=== PATIENT | male | born 1970 | race Caucasian/White ===

== ENCOUNTER → 2017-07-25 14:23 | Outpatient (REF) | payer MEDICAID, SELFPAY ==
[2017-07-25 18:22] LABS: Basophils % 0.5 % (0.1-2.0); Eosinophils # 0.4 K/mm3 (0.0-0.4); Eosinophils % 4.5 % (0.1-12.0); Hematocrit 46.9 % (42.0-52.0); Hemoglobin 14.9 g/dL (14.1-18.0); Lymphocytes # 3.2 K/mm3 (0.7-4.5); Lymphocytes % 38.2 K/mm3 (10-50); Mean Corpuscular HGB Conc 31.8 g/dL (31.8-35.4); Mean Corpuscular Hemoglobin 30.3 pg (27.0-31.2); Mean Corpuscular Volume 95.3 fl (80-94); Mean Platelet Volume 8.8 fl (7.4-10.4); Monocytes # 0.5 K/mm3 (0.1-1.0); Monocytes % 6.3 % (1.7-9.3); Neutrophils # 4.2 K/mm3 (1.8-7.8); Neutrophils % 50.6 % (37.0-80.0); Platelet Count 310 K/mm3 (142-424); Red Blood Count 4.92 M/mm3 (4.60-6.20); White Blood Count 8.3 K/mm3 (4.8-10.8)
[2017-07-25 19:28] LABS: Alanine Aminotransferase 33 U/L (12-78); Albumin Level 4.2 gm/dL (3.4-5.0); Albumin/Globulin Ratio 1.2 (1.1-1.8); Alkaline Phosphatase 111 U/L (46-116); Aspartate Amino Transferase 16 U/L (15-37); Bilirubin,Total 0.8 mg/dL (0.2-1.0); Blood Urea Nitrogen 16 mg/dL (7-18); Calcium 9.6 mg/dL (8.5-10.1); Carbon Dioxide 30 mmol/L (21.0-32.0); Chol/HDL Ratio 4.5 (1-3.5); Cholesterol 186 mg/dL (140-200); Creatinine,Serum 1.22 mg/dL (0.70-1.30); Estimated Glomerular Filt Rate 64 ml/min (>60); Free T4 (Free Thyroxine) 1.49 ng/dl (0.76-1.46); GFR (African American) 77 ML/MIN (>60); Globulin 3.5 gm/dl (1.3-3.2); Glucose 94 mg/dL (74-106); HDL Cholesterol 41 mg/dL (27-67); LDL Cholesterol 113 mg/dL (0-130); Total Protein,Serum 7.7 gm/dL (6.4-8.2); Triglycerides 160 mg/dL (30-200); VLDL Cholesterol 32 mg/dL (0-40)
[2017-07-25 19:59] LABS: Erythrocyte Sedimentation Rate 26 mm/hr (0-15)
[2017-07-25 20:04] LABS: Anion Gap 11.5 mEq/L (5-15); Chloride 102 mmol/L (98-107); Potassium 4.5 mmoL/L (3.5-5.1); Sodium 139 mmol/L (136-145)
== END ==
LOC: LAB 14:23
PROVIDERS: Visit Provider Emergency Medicine
DX: R53.83 Other fatigue (principal); Z79.899 Other long term (current) drug therapy
CPT/HCPCS: 80053; 80061; 84439; 84443; 85025; 85651

== ENCOUNTER → 2017-07-28 13:30 | Outpatient (CLI) | payer MEDICAID, SELFPAY ==
--- NOTE | 2017-07-28 13:34 | XR_ITS ---
XR hip RT 2-3V w/pelvis HISTORY: ITS.REASON: Right Hip Pain ORDERING PHYSICIAN: Tee Hinson MD PATIENT AGE: 46 years COMPARISON: None FINDINGS: There are severe osteoarthritic changes of the right hip with dysplastic changes of the femoral head with mild flattening of the femoral head. There are mild osteoarthritic changes of the left hip. No fracture or dislocation. No lytic or blastic change. IMPRESSION: 1. 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 Mild osteoarthritic changes of the left hip
== END ==
PROVIDERS: PCP Emergency Medicine; Visit Provider Emergency Medicine
DX: M25.551 Pain in right hip (principal)
CPT/HCPCS: 73502

== ENCOUNTER → 2017-08-04 14:11 | Outpatient (REF) | payer MEDICAID, SELFPAY ==
[2017-08-04 15:05] LABS: Amphetamine/Metha Screen,Urine Negative ng/mL (<1000); Barbiturates Screen,Urine Negative ng/mL (<200); Benzodiazepines Screen,Urine Negative ng/mL (200); Cannabinoid Screen,Urine Negative ng/mL (<50); Cocaine Screen,Urine Negative ng/g (<300); Methadone Screen,Urine Negative ng/mL (<300); Opiate Screen,Urine Positive ng/mL (<300); Phencyclidine Screen,Urine Negative ng/mL (<25)
== END ==
LOC: LAB 14:11
PROVIDERS: Visit Provider Emergency Medicine
DX: Z79.899 Other long term (current) drug therapy (principal)
CPT/HCPCS: 80305

== ENCOUNTER → 2017-08-27 09:46 | Outpatient (REF) | payer MEDICAID, SELFPAY ==
[2017-08-27 14:06] LABS: Amphetamine/Metha Screen,Urine Negative ng/mL (<1000); Barbiturates Screen,Urine Negative ng/mL (<200); Benzodiazepines Screen,Urine Negative ng/mL (200); Cannabinoid Screen,Urine Negative ng/mL (<50); Cocaine Screen,Urine Negative ng/g (<300); Methadone Screen,Urine Negative ng/mL (<300); Opiate Screen,Urine Positive ng/mL (<300); Phencyclidine Screen,Urine Negative ng/mL (<25)
== END ==
LOC: LAB 09:46
PROVIDERS: Visit Provider Emergency Medicine
DX: Z79.899 Other long term (current) drug therapy (principal)
CPT/HCPCS: 80305

== ENCOUNTER → 2017-09-26 09:04 | Outpatient (REF) | payer MEDICAID, SELFPAY ==
[2017-09-26 19:08] LABS: Amphetamine/Metha Screen,Urine Negative ng/mL (<1000); Barbiturates Screen,Urine Negative ng/mL (<200); Benzodiazepines Screen,Urine Negative ng/mL (200); Cannabinoid Screen,Urine Negative ng/mL (<50); Cocaine Screen,Urine Negative ng/g (<300); Methadone Screen,Urine Negative ng/mL (<300); Opiate Screen,Urine Positive ng/mL (<300); Phencyclidine Screen,Urine Negative ng/mL (<25)
== END ==
LOC: LAB 09:04
PROVIDERS: Visit Provider Emergency Medicine
DX: Z79.899 Other long term (current) drug therapy (principal)
CPT/HCPCS: 80305

== ENCOUNTER → 2017-10-24 10:14 | Outpatient (REF) | payer MEDICAID, SELFPAY ==
[2017-10-24 14:16] LABS: Amphetamine/Metha Screen,Urine Negative ng/mL (<1000); Barbiturates Screen,Urine Negative ng/mL (<200); Benzodiazepines Screen,Urine Negative ng/mL (200); Cannabinoid Screen,Urine Negative ng/mL (<50); Cocaine Screen,Urine Negative ng/g (<300); Methadone Screen,Urine Negative ng/mL (<300); Opiate Screen,Urine Positive ng/mL (<300); Phencyclidine Screen,Urine Negative ng/mL (<25)
== END ==
LOC: LAB 10:14
PROVIDERS: Visit Provider Emergency Medicine
DX: Z79.899 Other long term (current) drug therapy (principal)
CPT/HCPCS: 80305

== ENCOUNTER → 2017-10-27 10:06 | Outpatient (CLI) | payer MEDICAID, SELFPAY ==
[2017-10-31 17:24] LABS: Nicotine 16.8 ng/mL (.)
[2017-10-31 17:25] LABS: Cotinine 582.7 ng/mL (.)
== END ==
PROVIDERS: Visit Provider Orthopaedic Surgery Adult Reconstructive Orthopaedic Surgery
DX: Z00.00 Encounter for general adult medical examination without abnormal findings (principal)
CPT/HCPCS: 36415; 80323; G0480

== ENCOUNTER → 2017-11-19 10:12 | Outpatient (REF) | payer MEDICAID, SELFPAY ==
[2017-11-19 14:07] LABS: Amphetamine/Metha Screen,Urine Negative ng/mL (<1000); Barbiturates Screen,Urine Negative ng/mL (<200); Benzodiazepines Screen,Urine Negative ng/mL (200); Cannabinoid Screen,Urine Negative ng/mL (<50); Cocaine Screen,Urine Negative ng/g (<300); Methadone Screen,Urine Negative ng/mL (<300); Opiate Screen,Urine Positive ng/mL (<300); Phencyclidine Screen,Urine Negative ng/mL (<25)
== END ==
LOC: LAB 10:12
PROVIDERS: Visit Provider Emergency Medicine
DX: Z79.899 Other long term (current) drug therapy (principal)
CPT/HCPCS: 80305

== ENCOUNTER → 2017-11-25 10:36 | Outpatient (CLI) | payer MEDICAID, SELFPAY ==
[2017-11-25 10:48] LABS: Microscopic, Urine URINE MICROSCOPIC (MICROSCOPIC)
[2017-11-25 11:26] LABS: Appearance,Urine CLEAR (Clear); Bilirubin,Urine Negative (Negative); Blood, Urine Negative (Negative); Color,Urine YELLOW (Yellow); Glucose,Urine (UA) Negative (Negative); Ketones,Urine Negative (Negative); Leukocyte Esterase,Urine Negative (Negative); Nitrate,Urine Negative (Negative); Protein,Urine Negative (Negative); Specific Gravity, Urine 1.015 (1.005-1.030); Urobilinogen,Urine 0.2 EU/dl (0.2)
[2017-11-25 11:30] LABS: Activated Partial Thrombo Time 27.2 seconds (23.6-34.0); Prothrombin Time 9.7 seconds (9.4-11.8)
[2017-11-25 11:34] LABS: Basophils # 0.1 K/mm3 (0-0.2); Basophils % 0.6 % (0.1-2.0); Eosinophils # 0.5 K/mm3 (0.0-0.4); Hematocrit 46.1 % (42.0-52.0); Hemoglobin 14.6 g/dL (14.1-18.0); Lymphocytes # 2.9 K/mm3 (0.7-4.5); Lymphocytes % 31.3 K/mm3 (10-50); Mean Corpuscular HGB Conc 31.7 g/dL (31.8-35.4); Mean Corpuscular Hemoglobin 30.4 pg (27.0-31.2); Mean Corpuscular Volume 95.7 fl (80-94); Mean Platelet Volume 7.7 fl (7.4-10.4); Monocytes # 0.7 K/mm3 (0.1-1.0); Monocytes % 7.7 % (1.7-9.3); Neutrophils # 5.1 K/mm3 (1.8-7.8); Neutrophils % 55.4 % (37.0-80.0); Platelet Count 343 K/mm3 (142-424); Red Blood Count 4.82 M/mm3 (4.60-6.20); Red Cell Distribution Width 11.9 % (11.5-17.5); White Blood Count 9.2 K/mm3 (4.8-10.8)
[2017-11-25 11:37] LABS: Bacteria,Urine Trace /lpf; Squamous Epithelial Cell,Urine Occasional #/hpf (0-5)
[2017-11-25 11:55] LABS: Albumin Level 4.1 gm/dL (3.4-5.0); Anion Gap 13.8 mEq/L (5-15); Blood Urea Nitrogen 19 mg/dL (7-18); Calcium 10.1 mg/dL (8.5-10.1); Carbon Dioxide 28 mmol/L (21.0-32.0); Chloride 100 mmol/L (98-107); Creatinine,Serum 1.24 mg/dL (0.70-1.30); Estimated Glomerular Filt Rate 62 ml/min (>60); GFR (African American) 76 ML/MIN (>60); Glucose 90 mg/dL (74-106); Potassium 4.8 mmoL/L (3.5-5.1); Sodium 137 mmol/L (136-145)
[2017-11-25 12:28] LABS: Hemoglobin A1C 5.4 % (0.0-7.0)
[2017-11-27 06:28] LABS: Vitamin D 25 Hydroxy 29.1 ng/mL (30.0-100.0)
== END ==
PROVIDERS: Visit Provider Orthopaedic Surgery Adult Reconstructive Orthopaedic Surgery
DX: M16.10 Unilateral primary osteoarthritis, unspecified hip (principal)
CPT/HCPCS: 36415; 80048; 80323; 81001; 82040; 82652; 83036; 85025; 85610; 85730; G0480

== ENCOUNTER → 2018-01-14 09:08 | Outpatient (REF) | payer MEDICAID, SELFPAY ==
[2018-01-14 14:05] LABS: Amphetamine/Metha Screen,Urine Negative ng/mL (<1000); Barbiturates Screen,Urine Negative ng/mL (<200); Benzodiazepines Screen,Urine Negative ng/mL (<200); Cannabinoid Screen,Urine Negative ng/mL (<50); Cocaine Screen,Urine Negative ng/mL (<300); Methadone Screen,Urine Negative ng/mL (<300); Opiate Screen,Urine Positive ng/mL (<300); Phencyclidine Screen,Urine Negative ng/mL (<25)
== END ==
LOC: LAB 09:08
PROVIDERS: Visit Provider Emergency Medicine
DX: M25.552 Pain in left hip (principal)
CPT/HCPCS: 80305

== ENCOUNTER 2018-01-27 15:30 | Outpatient (RCR) | payer MEDICAID, SELFPAY | END 2018-01-27 15:31 | disposition home or self-care (01) | LOC: PT 15:30 | PROVIDERS: PCP Emergency Medicine; Visit Provider Orthopaedic Surgery Adult Reconstructive Orthopaedic Surgery | DX: M25.552 Pain in left hip (principal); Z96.642 Presence of left artificial hip joint | CPT/HCPCS: 97110; 97163 ==

== ENCOUNTER → 2018-01-31 11:16 | Outpatient (CLI) | payer MEDICAID, SELFPAY ==
[2018-01-31 11:24] LABS: Microscopic, Urine URINE MICROSCOPIC (MICROSCOPIC)
[2018-01-31 11:50] LABS: Appearance,Urine CLEAR (Clear); Bilirubin,Urine Negative (Negative); Blood, Urine Negative (Negative); Color,Urine YELLOW (Yellow); Glucose,Urine (UA) Negative (Negative); Ketones,Urine Negative (Negative); Leukocyte Esterase,Urine Negative (Negative); Nitrate,Urine Negative (Negative); PH,Urine 6.5 (5.0-8.5); Protein,Urine Negative (Negative); Specific Gravity, Urine 1.015 (1.005-1.030)
[2018-01-31 11:51] LABS: Basophils % 0.3 % (0.1-2.0); Eosinophils # 0.6 K/mm3 (0.0-0.4); Eosinophils % 6.6 % (0.1-12.0); Hematocrit 45.4 % (42.0-52.0); Hemoglobin 14.9 g/dL (14.1-18.0); Lymphocytes # 2.6 K/mm3 (0.7-4.5); Lymphocytes % 28.5 K/mm3 (10-50); Mean Corpuscular HGB Conc 32.9 g/dL (31.8-35.4); Mean Corpuscular Hemoglobin 30.6 pg (27.0-31.2); Mean Corpuscular Volume 93.2 fl (80-94); Mean Platelet Volume 7.3 fl (7.4-10.4); Monocytes # 0.6 K/mm3 (0.1-1.0); Neutrophils # 5.3 K/mm3 (1.8-7.8); Neutrophils % 57.6 % (37.0-80.0); Platelet Count 350 K/mm3 (142-424); Red Blood Count 4.87 M/mm3 (4.60-6.20); Red Cell Distribution Width 13.3 % (11.5-17.5); White Blood Count 9.2 K/mm3 (4.8-10.8)
[2018-01-31 12:00] LABS: Activated Partial Thrombo Time 29.9 seconds (23.6-34.0); INR 0.92 (0.9-1.1); Prothrombin Time 9.5 seconds (9.4-11.8)
[2018-01-31 12:20] LABS: Hemoglobin A1C 5.2 % (0.0-7.0)
[2018-01-31 12:29] LABS: Bacteria,Urine Trace /lpf; Squamous Epithelial Cell,Urine Occasional #/hpf (0-5)
[2018-01-31 12:51] LABS: Anion Gap 14.7 mEq/L (5-15); Blood Urea Nitrogen 18 mg/dL (7-18); Calcium 9.8 mg/dL (8.5-10.1); Carbon Dioxide 29 mmol/L (21.0-32.0); Chloride 101 mmol/L (98-107); Creatinine,Serum 1.47 mg/dL (0.70-1.30); Estimated Glomerular Filt Rate 51 ml/min (>60); GFR (African American) 62 ML/MIN (>60); Glucose 92 mg/dL (74-106); Potassium 4.7 mmoL/L (3.5-5.1); Sodium 140 mmol/L (136-145)
[2018-02-03 16:04] LABS: Vitamin D 25 Hydroxy 29.4 ng/mL (30.0-100.0)
== END ==
PROVIDERS: Visit Provider Orthopaedic Surgery Adult Reconstructive Orthopaedic Surgery
DX: M16.10 Unilateral primary osteoarthritis, unspecified hip (principal)
CPT/HCPCS: 36415; 80048; 80323; 81001; 82040; 82652; 83036; 85025; 85610; 85730

== ENCOUNTER → 2018-03-17 14:40 | Outpatient (REF) | payer MEDICAID, SELFPAY ==
[2018-03-17 19:16] LABS: Amphetamine/Metha Screen,Urine Negative ng/mL (<1000); Barbiturates Screen,Urine Negative ng/mL (<200); Benzodiazepines Screen,Urine Negative ng/mL (<200); Cannabinoid Screen,Urine Negative ng/mL (<50); Cocaine Screen,Urine Negative ng/mL (<300); Methadone Screen,Urine Negative ng/mL (<300); Opiate Screen,Urine Positive ng/mL (<300); Phencyclidine Screen,Urine Negative ng/mL (<25)
== END ==
LOC: LAB 14:40
PROVIDERS: Visit Provider Emergency Medicine
DX: Z79.899 Other long term (current) drug therapy (principal)
CPT/HCPCS: 80305

== ENCOUNTER 2018-03-30 15:00 | Outpatient (RCR) | payer MEDICAID, SELFPAY | END 2018-03-30 15:01 | disposition home or self-care (01) | LOC: PT 15:00 | PROVIDERS: PCP Emergency Medicine; Visit Provider Orthopaedic Surgery Adult Reconstructive Orthopaedic Surgery | DX: Z96.641 Presence of right artificial hip joint (principal) | CPT/HCPCS: 97110; 97163 ==

== ENCOUNTER → 2018-04-21 17:50 | Outpatient (CLI) | payer MEDICAID, SELFPAY ==
[2018-04-21 19:00] LABS: Amphetamine/Metha Screen,Urine Negative ng/mL (<1000); Barbiturates Screen,Urine Negative ng/mL (<200); Benzodiazepines Screen,Urine Negative ng/mL (<200); Cannabinoid Screen,Urine Negative ng/mL (<50); Cocaine Screen,Urine Negative ng/mL (<300); Methadone Screen,Urine Negative ng/mL (<300); Opiate Screen,Urine Positive ng/mL (<300); Phencyclidine Screen,Urine Negative ng/mL (<25)
== END ==
PROVIDERS: Visit Provider Emergency Medicine
DX: Z79.899 Other long term (current) drug therapy (principal)
CPT/HCPCS: 80305

== ENCOUNTER → 2018-04-30 13:08 | Outpatient (CLI) | payer MEDICAID, SELFPAY ==
--- NOTE | 2018-04-30 13:10 | MR_ITS ---
MR lumbar spine wo con, MR 3-d myelogram/MRCP HISTORY: Low back pain LBP since last Hip replacement surgery in JAN. No trauma ITS.REASON: back pain ORDERING PHYSICIAN: Tee Hinson MD PATIENT AGE: 47 years Comparison: None TECHNIQUE: Standard multiplanar multiecho sequences are performed without contrast. 3-D MIP and myelographic images are also rendered and reviewed FINDINGS: There is normal alignment. The spinal cord ends at the T12-L1 level. T 11-12: Mild degenerative disc disease. L1-L2: Unremarkable. L2-L3: Unremarkable. L3-4: Degenerative disc disease with mild bulging disc along with facet and ligamentum flavum hypertrophy. There is mild left-sided foraminal narrowing. A small area of increased T2 signal is present in the right aspect of the vertebral body posteriorly at 7 mm. This is nonspecific and may be due to small hemangioma isointense on T1. L4-L5: Mild degenerative disc disease with bulging disc along with facet and ligamentum flavum hypertrophy. There is moderate to severe left-sided foraminal narrowing with left-sided foraminal and lateral disc protrusion/disc osteophyte complex contributing to the foraminal narrowing. L5-S1: Minimal anterolisthesis of L5 of 2 mm with bulging disc and facet and ligamentum hypertrophy with moderate to severe left-sided foraminal narrowing. No extruded herniated disc evident. IMPRESSION: 1. Multilevel lumbar spondylosis as detailed above with degenerative disc disease, bulging disc and facet and ligamentum hypertrophy with lateral recess and foraminal narrowing. Please see above for detailed description at each level 2. L4-L5: Mild degenerative disc disease with bulging disc along with facet and ligamentum flavum hypertrophy. There is moderate to severe left-sided foraminal narrowing with left-sided foraminal and lateral disc protrusion/disc osteophyte complex contributing to the foraminal narrowing. 3. L5-S1: Minimal anterolisthesis of L5 of 2 mm with bulging disc and facet and ligamentum hypertrophy with moderate to severe left-sided foraminal narrowing.
== END ==
PROVIDERS: PCP Emergency Medicine; Visit Provider Emergency Medicine
DX: M54.9 Dorsalgia, unspecified (principal); M25.551 Pain in right hip; M25.552 Pain in left hip
CPT/HCPCS: 72148; 76376

== ENCOUNTER → 2018-05-20 19:40 | Outpatient (CLI) | payer MEDICAID, SELFPAY ==
[2018-05-20 21:58] LABS: Amphetamine/Metha Screen,Urine Negative ng/mL (<1000); Barbiturates Screen,Urine Negative ng/mL (<200); Benzodiazepines Screen,Urine Negative ng/mL (<200); Cannabinoid Screen,Urine Negative ng/mL (<50); Cocaine Screen,Urine Negative ng/mL (<300); Methadone Screen,Urine Negative ng/mL (<300); Opiate Screen,Urine Positive ng/mL (<300); Phencyclidine Screen,Urine Negative ng/mL (<25)
== END ==
PROVIDERS: Visit Provider Emergency Medicine
DX: Z79.899 Other long term (current) drug therapy (principal)
CPT/HCPCS: 80305

== ENCOUNTER → 2018-05-25 13:19 | Outpatient (POV) | payer MEDICAID, SELFPAY ==
[2018-05-25 13:26] VITALS: BP 119/87; PULSE 100; RESP 18; O2SAT 98
--- NOTE | 2018-05-25 15:53 | HMH.PMCON ---
Assessment and Plan (1) Sacroiliitis Current visit: Yes Status: Acute Category: Medical Code(s): M46.1 - Sacroiliitis, not elsewhere classified (2) DDD (degenerative disc disease), lumbar Current visit: No Status: Chronic Category: Medical Code(s): M51.36 - Other intervertebral disc degeneration, lumbar region - Assessment and plan all Dx Assessment and Plan for all problems:: I offered the patient injections he is uninterested in these. I did give the patient information on an SI joint injection I do believe he could benefit from bilateral SI joint injections. Patient is going to review this. If he is interested in moving forward with this he is going to call our office. This note was dictated using voice recognition software and may contain errors or omissions HPI - Data of Consult Consult date: 05/25/18 Requesting Physician: María Reese APRN Primary Care Provider: Tee Hinson MD - Consult Narrative Reason for consult: Low back pain History of present illness: Mr. Boyle is a 47 year old male who presents today for consultation in regards to his low back pain and bilateral hip pain. Patient had bile hip replacement in November. Patient states sitting or standing long periods of time increases his pain while gabapentin and rest decreases his pain. He does have numbness and tingling in his bilateral legs. He is tried physical therapy with minimal relief. Patient rates his pain a 4 out of 10 today. Patient and I discussed potential SI joint issues and injections. Patient is uninterested in injective. Patient states that after an injection in his bursa he had to have a hip replacement and that after 1 of the people he knows had an injection in her back she had about have back surgery. I explained to him the difference in SI joint injections.. CC: María Reese APRN [facility] History I have reviewed the patient's past medical history: Yes Medical History: Reports:: Hyperlipidemia Other Medical History: Reports: Other Laterality Cases: Bilateral: Total Hip Replacement Other Surgeries: Yes: Hernia Repair Amputation: No Fractures: No - *Social History Smoking Status: Unknown if ever smoked Alcohol Intake: never Substance Use Type: denies use Occupational Status: disabled Housing: house Household Members: family - Psychiatric History Expresses thoughts of harming self/others: None Suicide Plan Description: No Plan *Family Hx:: Cancer, Heart Attack Review of Systems - Review of Systems ROS General: no recent weight change, no fever, no sleep disturbances Respiratory: no cough, no shortness of air, no recurring pulmonary infections Cardiovascular/Peripheral Vascular: No chest pain, No palpitations, no edema, no shortness of breath. Gastrointestinal: no incontinence, normal bowel movements reported Genitourinary: no incontinence Musculoskeletal: Bilateral hip pain, back pain Psychiatric: normal mood/ affect Neurological: [denies weakness in extremities], [denies balance issues] Meds Allergies Allergy/AdvReac Type Severity Reaction Status Date / Time No Known Drug Allergies Allergy Verified 05/20/18 13:25 Objective Vital signs: Pulse Resp BP Pulse Ox 100 H 18 119/87 98 05/25/18 13:26 05/25/18 13:26 05/25/18 13:26 05/25/18 13:26 Narrative: Physical Exam General: Alert and oriented x3, no acute distress, pleasant and cooperative, [on room air] Lungs: Resps E/U, Symmetrical chest expansion, Eyes: PERRL Musculoskeletal: Flexion and extension of lumbar spine somewhat guarded secondary to pain, deep tendon reflexes normal, strength in upper and lower extremities [5/5], [abnormal gait noted] positive Terri's test bilaterally Neurological: speech clear, 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
--- NOTE | 2018-05-25 15:56 | P.CONS_ITS ---
Assessment and Plan (1) Sacroiliitis Current visit: Yes Status: Acute Category: Medical Code(s): M46.1 - Sacroiliitis, not elsewhere classified (2) DDD (degenerative disc disease), lumbar Current visit: No Status: Chronic Category: Medical Code(s): M51.36 - Other intervertebral disc degeneration, lumbar region - Assessment and plan all Dx Assessment and Plan for all problems:: I offered the patient injections he is uninterested in these. I did give the patient information on an SI joint injection I do believe he could benefit from bilateral SI joint injections. Patient is going to review this. If he is interested in moving forward with this he is going to call our office. This note was dictated using voice recognition software and may contain errors or omissions HPI - Data of Consult Consult date: 05/25/18 Requesting Physician: María Reese APRN Primary Care Provider: Tee Hinson MD - Consult Narrative Reason for consult: Low back pain History of present illness: Mr. Boyle is a 47 year old male who presents today for consultation in regards to his low back pain and bilateral hip pain. Patient had bile hip replacement in November. Patient states sitting or standing long periods of time increases his pain while gabapentin and rest decreases his pain. He does have numbness and tingling in his bilateral legs. He is tried physical therapy with minimal relief. Patient rates his pain a 4 out of 10 today. Patient and I discussed potential SI joint issues and injections. Patient is uninterested in injective. Patient states that after an injection in his bursa he had to have a hip replacement and that after 1 of the people he knows had an injection in her back she had about have back surgery. I explained to him the difference in SI joint injections.. CC: María Reese APRN [facility] History I have reviewed the patient's past medical history: Yes Medical History: Reports:: Hyperlipidemia Other Medical History: Reports: Other Laterality Cases: Bilateral: Total Hip Replacement Other Surgeries: Yes: Hernia Repair Amputation: No Fractures: No - *Social History Smoking Status: Unknown if ever smoked Alcohol Intake: never Substance Use Type: denies use Occupational Status: disabled Housing: house Household Members: family - Psychiatric History Expresses thoughts of harming self/others: None Suicide Plan Description: No Plan *Family Hx:: Cancer, Heart Attack Review of Systems - Review of Systems ROS General: no recent weight change, no fever, no sleep disturbances Respiratory: no cough, no shortness of air, no recurring pulmonary infections Cardiovascular/Peripheral Vascular: No chest pain, No palpitations, no edema, no shortness of breath. Gastrointestinal: no incontinence, normal bowel movements reported Genitourinary: no incontinence Musculoskeletal: Bilateral hip pain, back pain Psychiatric: normal mood/ affect Neurological: [denies weakness in extremities], [denies balance issues] Meds Allergies Allergy/AdvReac Type Severity Reaction Status Date / Time No Known Drug Allergies Allergy Verified 05/20/18 13:25 Objective Vital signs: Pulse Resp BP Pulse Ox 100 H 18 119/87 98 05/25/18 13:26 05/25/18 13:26 05/25/18 13:26 05/25/18 13:26 Narrative: Physical Exam Ge
== END ==
PROVIDERS: PCP Emergency Medicine; Visit Provider Clinical Nurse Specialist Family Health
DX: M46.1 Sacroiliitis, not elsewhere classified (principal); M51.36 Other intervertebral disc degeneration, lumbar region
CPT/HCPCS: 99202

== ENCOUNTER → 2018-06-11 14:27 | Outpatient (POV) | payer MEDICAID, SELFPAY | PROVIDERS: Visit Provider Neurological Surgery | DX: Z00.00 Encounter for general adult medical examination without abnormal findings (principal) ==

== ENCOUNTER → 2018-06-17 15:46 | Outpatient (CLI) | payer MEDICAID, SELFPAY ==
[2018-06-17 16:29] LABS: Amphetamine/Metha Screen,Urine Negative ng/mL (<1000); Barbiturates Screen,Urine Negative ng/mL (<200); Benzodiazepines Screen,Urine Negative ng/mL (<200); Cannabinoid Screen,Urine Negative ng/mL (<50); Cocaine Screen,Urine Negative ng/mL (<300); Methadone Screen,Urine Negative ng/mL (<300); Opiate Screen,Urine Positive ng/mL (<300); Phencyclidine Screen,Urine Negative ng/mL (<25)
== END ==
PROVIDERS: Visit Provider Emergency Medicine
DX: M54.9 Dorsalgia, unspecified (principal)
CPT/HCPCS: 80305

== ENCOUNTER → 2018-07-07 11:27 | Outpatient (POV) | payer MEDICAID, SELFPAY ==
[2018-07-07 12:15] VITALS: BP 122/82; PULSE 73; RESP 18; O2SAT 98; BMI 30.5
--- NOTE | 2018-07-07 12:28 | HMH.PAINSOAP ---
[facility] Pain Management SOAP Note Subjective:: Is a pleasant 47-year-old white male who presents today for follow-up. He was consulted and it was believed he could benefit from bilateral SI joint injections however he was uninterested in the time. Patient has seen Dr. Sorenson since then who reiterated he felt that the SI joint injections would be beneficial. Patient would like to proceed with this now. He rates his pain a 6 out of 10 in his lower back. ROS General: no recent weight change, no fever, no sleep disturbances Respiratory: no cough, no shortness of air, no recurring pulmonary infections Cardiovascular/Peripheral Vascular: No chest pain, No palpitations, no edema, no shortness of breath. Gastrointestinal: no incontinence, normal bowel movements reported Genitourinary: no incontinence Musculoskeletal: Back pain, SI joint pain Psychiatric: normal mood/ affect Neurological: [denies weakness in extremities], [denies balance issues] Objective:: Physical Exam General: Alert and oriented x3, no acute distress, pleasant and cooperative, [on room air] Lungs: Resps E/U, Symmetrical chest expansion, Eyes: PERRL Musculoskeletal: Flexion and extension of lumbar spine somewhat guarded secondary to pain, deep tendon reflexes normal, strength in upper and lower extremities [5/5], [abnormal gait noted] positive Terri's test bilaterally Neurological: speech clear, director of placement equal, no gross sensory deficits Assessment:: Sacroiliitis Plan:: We will schedule bilateral SI joint injections for the patient. I will follow-up with him after this. Patient is not on any anticoagulation therapy and is continuing a home stretching program. Dr. Mcdonald has reviewed this note and agrees with this plan of care. This note was dictated using voice recognition software and may contain errors or omissions
--- NOTE | 2018-07-07 12:31 | P.CONS_ITS ---
[facility] Pain Management SOAP Note Subjective:: Is a pleasant 47-year-old white male who presents today for follow-up. He was consulted and it was believed he could benefit from bilateral SI joint injections however he was uninterested in the time. Patient has seen Dr. Sorenson since then who reiterated he felt that the SI joint injections would be beneficial. Patient would like to proceed with this now. He rates his pain a 6 out of 10 in his lower back. ROS General: no recent weight change, no fever, no sleep disturbances Respiratory: no cough, no shortness of air, no recurring pulmonary infections Cardiovascular/Peripheral Vascular: No chest pain, No palpitations, no edema, no shortness of breath. Gastrointestinal: no incontinence, normal bowel movements reported Genitourinary: no incontinence Musculoskeletal: Back pain, SI joint pain Psychiatric: normal mood/ affect Neurological: [denies weakness in extremities], [denies balance issues] Objective:: Physical Exam General: Alert and oriented x3, no acute distress, pleasant and cooperative, [on room air] Lungs: Resps E/U, Symmetrical chest expansion, Eyes: PERRL Musculoskeletal: Flexion and extension of lumbar spine somewhat guarded secondary to pain, deep tendon reflexes normal, strength in upper and lower extremities [5/5], [abnormal gait noted] positive Terri's test bilaterally Neurological: speech clear, operater equal, no gross sensory deficits Assessment:: Sacroiliitis Plan:: We will schedule bilateral SI joint injections for the patient. I will follow- up with him after this. Patient is not on any anticoagulation therapy and is continuing a home stretching program. Dr. Mcdonald has reviewed this note and agrees with this plan of care. This note was dictated using voice recognition software and may contain errors or omissions
== END ==
PROVIDERS: PCP Emergency Medicine; Visit Provider Clinical Nurse Specialist Family Health
DX: M46.1 Sacroiliitis, not elsewhere classified (principal)
CPT/HCPCS: 99213

== ENCOUNTER → 2018-08-11 10:28 | Outpatient (POV) | payer MEDICAID, SELFPAY ==
[2018-08-11 10:37] VITALS: BP 134/98; PULSE 69; RESP 18; O2SAT 98; BMI 30.5
--- NOTE | 2018-08-11 11:10 | HMH.PAINSOAP ---
[facility] Pain Management SOAP Note Subjective:: patient is a pleasant 47-year-old white male presents today to follow-up after bilateral SI joint injections. Patient was seen by Dr. Sorenson who recommended SI joint injections. Patient stated that there were not beneficial at all. He rates his pain a 7 out of 10. Patient MRI does show lumbar spondylosis along with mild degenerative disc disease. Patient and I did discuss facet joint injections however he is unsure if he would like to move forward with any more injective therapy. ROS General: no recent weight change, no fever, no sleep disturbances Respiratory: no cough, no shortness of air, no recurring pulmonary infections Cardiovascular/Peripheral Vascular: No chest pain, No palpitations, no edema, no shortness of breath. Gastrointestinal: no incontinence, normal bowel movements reported Genitourinary: no incontinence Musculoskeletal: Back pain, hip pain Psychiatric: normal mood/ affect Neurological: [denies weakness in extremities], [denies balance issues] Objective:: Physical Exam General: Alert and oriented x3, no acute distress, pleasant and cooperative, [on room air] Lungs: Resps E/U, Symmetrical chest expansion, Eyes: PERRL Musculoskeletal: Flexion and extension of lumbar spine somewhat guarded secondary to pain, deep tendon reflexes normal, strength in upper and lower extremities [5/5], antalgic gait noted, positive Kemps test bilateral lumbar spine Neurological: speech clear, road conductor equal, no gross sensory deficits Assessment:: Lumbar spondylosis, sacroiliitis, back pain, degenerative disc disease lumbar spine Plan:: Patient is good to review some information in regards to facet joint injections. I discussed with him that these are diagnostic to determine if he would be a rhizotomy candidate. Patient is going to call us if he is interested in moving forward with this. Dr. Mcdonald has reviewed this note and agrees with this plan of care. This note was dictated using voice recognition software and may contain errors or omissions
--- NOTE | 2018-08-11 11:13 | P.CONS_ITS ---
[facility] Pain Management SOAP Note Subjective:: patient is a pleasant 47-year-old white male presents today to follow-up after bilateral SI joint injections. Patient was seen by Dr. Sorenson who recommended SI joint injections. Patient stated that there were not beneficial at all. He rates his pain a 7 out of 10. Patient MRI does show lumbar spondylosis along with mild degenerative disc disease. Patient and I did discuss facet joint injections however he is unsure if he would like to move forward with any more injective therapy. ROS General: no recent weight change, no fever, no sleep disturbances Respiratory: no cough, no shortness of air, no recurring pulmonary infections Cardiovascular/Peripheral Vascular: No chest pain, No palpitations, no edema, no shortness of breath. Gastrointestinal: no incontinence, normal bowel movements reported Genitourinary: no incontinence Musculoskeletal: Back pain, hip pain Psychiatric: normal mood/ affect Neurological: [denies weakness in extremities], [denies balance issues] Objective:: Physical Exam General: Alert and oriented x3, no acute distress, pleasant and cooperative, [on room air] Lungs: Resps E/U, Symmetrical chest expansion, Eyes: PERRL Musculoskeletal: Flexion and extension of lumbar spine somewhat guarded secondary to pain, deep tendon reflexes normal, strength in upper and lower extremities [5/5], antalgic gait noted, positive Kemps test bilateral lumbar spine Neurological: speech clear, 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 I discussed with him that these are diagnostic to determine if he would be a rhizotomy candidate. Patient is going to call us if he is interested in moving forward with this. Dr. Mcdonald has reviewed this note and agrees with this plan of care. This note was dictated using voice recognition software and may contain errors or omissions
== END ==
PROVIDERS: PCP Emergency Medicine; Visit Provider Clinical Nurse Specialist Family Health
DX: M47.816 Spondylosis without myelopathy or radiculopathy, lumbar region (principal); M46.1 Sacroiliitis, not elsewhere classified; M51.36 Other intervertebral disc degeneration, lumbar region
CPT/HCPCS: 99213

== ENCOUNTER → 2018-08-17 15:20 | Outpatient (CLI) | payer MEDICAID, SELFPAY ==
[2018-08-17 15:53] LABS: Amphetamine/Metha Screen,Urine Negative ng/mL (<1000); Barbiturates Screen,Urine Negative ng/mL (<200); Benzodiazepines Screen,Urine Negative ng/mL (<200); Cannabinoid Screen,Urine Negative ng/mL (<50); Cocaine Screen,Urine Negative ng/mL (<300); Methadone Screen,Urine Negative ng/mL (<300); Opiate Screen,Urine Positive ng/mL (<300); Phencyclidine Screen,Urine Negative ng/mL (<25)
== END ==
PROVIDERS: Visit Provider Nurse Practitioner Family
DX: Z79.899 Other long term (current) drug therapy (principal)
CPT/HCPCS: 80305

== ENCOUNTER → 2018-09-15 18:04 | Outpatient (CLI) | payer MEDICAID, SELFPAY ==
[2018-09-15 19:28] LABS: Amphetamine/Metha Screen,Urine Negative ng/mL (<1000); Barbiturates Screen,Urine Negative ng/mL (<200); Benzodiazepines Screen,Urine Negative ng/mL (<200); Cannabinoid Screen,Urine Negative ng/mL (<50); Cocaine Screen,Urine Negative ng/mL (<300); Methadone Screen,Urine Negative ng/mL (<300); Opiate Screen,Urine Positive ng/mL (<300); Phencyclidine Screen,Urine Negative ng/mL (<25)
[2018-09-23 04:26] LABS: Codeine Negative (Cutoff=100); Hydrocodone Positive (.); Hydromorphone Positive (.); Morphine Negative (Cutoff=100)
[2018-09-23 08:24] LABS: Hydrocodone Confirm 438 ng/mL (Cutoff=100); Hydromorphone Confirm 269 ng/mL (Cutoff=100); Opiates Positive (.)
== END ==
PROVIDERS: Visit Provider Nurse Practitioner Family
DX: Z79.899 Other long term (current) drug therapy (principal)
CPT/HCPCS: 80305; 80361; G0480

== ENCOUNTER → 2018-11-13 16:54 | Outpatient (CLI) | payer MEDICAID, SELFPAY ==
[2018-11-13 19:25] LABS: Amphetamine/Metha Screen,Urine Negative ng/mL (<1000); Barbiturates Screen,Urine Negative ng/mL (<200); Benzodiazepines Screen,Urine Negative ng/mL (<200); Cannabinoid Screen,Urine Negative ng/mL (<50); Cocaine Screen,Urine Negative ng/mL (<300); Methadone Screen,Urine Negative ng/mL (<300); Opiate Screen,Urine Positive ng/mL (<300); Phencyclidine Screen,Urine Negative ng/mL (<25)
== END ==
PROVIDERS: Visit Provider Emergency Medicine
DX: Z79.899 Other long term (current) drug therapy (principal)
CPT/HCPCS: 80305

== ENCOUNTER → 2019-01-12 13:30 | Outpatient (CLI) | payer MEDICAID, SELFPAY ==
[2019-01-12 13:59] LABS: Basophils # 0.1 K/mm3 (0-0.2); Basophils % 0.5 % (0.1-2.0); Eosinophils # 0.4 K/mm3 (0.0-0.4); Eosinophils % 4.2 % (0.1-12.0); Hemoglobin 14.9 g/dL (14.1-18.0); Lymphocytes # 2.6 K/mm3 (0.7-4.5); Lymphocytes % 24.8 % (10-50); Mean Corpuscular HGB Conc 32.4 g/dL (31.8-35.4); Mean Corpuscular Hemoglobin 30.6 pg (27.0-31.2); Mean Corpuscular Volume 94.5 fl (80-94); Mean Platelet Volume 8.5 fl (7.4-10.4); Monocytes # 0.8 K/mm3 (0.1-1.0); Monocytes % 7.8 % (1.7-9.3); Neutrophils # 6.5 K/mm3 (1.8-7.8); Neutrophils % 62.6 % (37.0-80.0); Platelet Count 276 K/mm3 (142-424); Red Blood Count 4.87 M/mm3 (4.60-6.20); Red Cell Distribution Width 12.4 % (11.5-17.5); White Blood Count 10.4 K/mm3 (4.8-10.8)
[2019-01-12 14:14] LABS: Alanine Aminotransferase 55 U/L (12-78); Albumin Level 3.8 gm/dL (3.4-5.0); Albumin/Globulin Ratio 1.1 (1.1-1.8); Alkaline Phosphatase 114 U/L (46-116); Anion Gap 12.5 mEq/L (5-15); Aspartate Amino Transferase 26 U/L (15-37); Bilirubin,Total 1.3 mg/dL (0.2-1.0); Blood Urea Nitrogen 16 mg/dL (7-18); Calcium 9.7 mg/dL (8.5-10.1); Carbon Dioxide 30 mmol/L (21.0-32.0); Chloride 102 mmol/L (98-107); Chol/HDL Ratio 6.2 (1-3.5); Cholesterol 246 mg/dL (140-200); Creatinine,Serum 1.63 mg/dL (0.70-1.30); Estimated Glomerular Filt Rate 45 ml/min (>60); Free T4 (Free Thyroxine) 1.19 ng/dl (0.76-1.46); GFR (African American) 55 ML/MIN (>60); Globulin 3.5 gm/dl (1.3-3.2); Glucose 92 mg/dL (74-106); HDL Cholesterol 40 mg/dL (27-67); LDL Cholesterol 129 mg/dL (0-130); Potassium 4.5 mmoL/L (3.5-5.1); Sodium 140 mmol/L (136-145); Thyroid Stimulating Hormone 2.97 uIU/ml (0.358-3.740); Total Protein,Serum 7.3 gm/dL (6.4-8.2); Triglycerides 384 mg/dL (30-200); VLDL Cholesterol 77 mg/dL (0-40)
[2019-01-12 17:48] LABS: Amphetamine/Metha Screen,Urine Negative ng/mL (<1000); Barbiturates Screen,Urine Negative ng/mL (<200); Benzodiazepines Screen,Urine Negative ng/mL (<200); Cannabinoid Screen,Urine Negative ng/mL (<50); Cocaine Screen,Urine Negative ng/mL (<300); Methadone Screen,Urine Negative ng/mL (<300); Opiate Screen,Urine Positive ng/mL (<300); Phencyclidine Screen,Urine Negative ng/mL (<25)
[2019-01-14 08:19] LABS: Vitamin D 25 Hydroxy 23.6 ng/mL (30.0-100.0)
== END ==
PROVIDERS: Visit Provider Emergency Medicine
DX: R53.83 Other fatigue (principal); Z79.899 Other long term (current) drug therapy; E55.9 Vitamin D deficiency, unspecified
CPT/HCPCS: 80053; 80061; 80305; 82652; 84439; 84443; 85025

== ENCOUNTER 2019-01-26 08:00 | Outpatient (RCR) | payer MEDICAID, SELFPAY | END 2019-01-26 08:05 | disposition home or self-care (01) | LOC: PT 08:00 | PROVIDERS: Visit Provider Orthopaedic Surgery Adult Reconstructive Orthopaedic Surgery | DX: Z96.642 Presence of left artificial hip joint (principal); Z96.641 Presence of right artificial hip joint | CPT/HCPCS: 97110; 97163 ==

== ENCOUNTER 2019-01-26 08:30 | Outpatient (RCR) | payer MEDICAID, SELFPAY | END 2019-01-26 08:35 | disposition home or self-care (01) | LOC: PT 08:30 | PROVIDERS: PCP Emergency Medicine; Visit Provider Orthopaedic Surgery Orthopaedic Surgery of the Spine | DX: M47.816 Spondylosis without myelopathy or radiculopathy, lumbar region (principal) | CPT/HCPCS: 97010; 97014; 97110; 97163; G0283 ==

== ENCOUNTER → 2019-03-12 13:13 | Outpatient (CLI) | payer MEDICAID, SELFPAY ==
[2019-03-12 14:13] LABS: Amphetamine/Metha Screen,Urine Negative ng/mL (<1000); Barbiturates Screen,Urine Negative ng/mL (<200); Benzodiazepines Screen,Urine Negative ng/mL (<200); Cannabinoid Screen,Urine Negative ng/mL (<50); Cocaine Screen,Urine Negative ng/mL (<300); Methadone Screen,Urine Negative ng/mL (<300); Opiate Screen,Urine Positive ng/mL (<300); Phencyclidine Screen,Urine Negative ng/mL (<25)
== END ==
PROVIDERS: Visit Provider Emergency Medicine
DX: M25.78 Osteophyte, vertebrae (principal); M51.36 Other intervertebral disc degeneration, lumbar region
CPT/HCPCS: 80305

== ENCOUNTER → 2019-07-07 15:10 | Outpatient (CLI) | payer OTHER, SELFPAY ==
[2019-07-07 17:14] LABS: Amphetamine/Metha Screen,Urine Negative ng/mL (<1000); Barbiturates Screen,Urine Negative ng/mL (<200); Benzodiazepines Screen,Urine Negative ng/mL (<200); Cannabinoid Screen,Urine Negative ng/mL (<50); Cocaine Screen,Urine Negative ng/mL (<300); Methadone Screen,Urine Negative ng/mL (<300); Opiate Screen,Urine Positive ng/mL (<300); Phencyclidine Screen,Urine Negative ng/mL (<25)
== END ==
PROVIDERS: Visit Provider Emergency Medicine
DX: Z79.899 Other long term (current) drug therapy (principal)
CPT/HCPCS: 80305

== ENCOUNTER → 2019-09-01 13:29 | Outpatient (CLI) | payer OTHER, SELFPAY ==
[2019-09-01 14:40] LABS: Amphetamine/Metha Screen,Urine Negative ng/ml (<1000)
[2019-09-01 14:41] LABS: Barbiturates Screen,Urine Negative ng/ml (<200); Benzodiazepines Screen,Urine Negative ng/ml (<200)
[2019-09-01 14:42] LABS: Cannabinoid Screen,Urine Negative ng/ml (<50)
[2019-09-01 14:43] LABS: Cocaine Screen,Urine Negative ng/ml (<300); Methadone Screen,Urine Negative ng/ml (<300)
[2019-09-01 14:44] LABS: Opiate Screen,Urine Positive ng/ml (<300); Phencyclidine Screen,Urine Negative ng/ml (<25)
== END ==
PROVIDERS: Visit Provider Emergency Medicine
DX: Z79.899 Other long term (current) drug therapy (principal)
CPT/HCPCS: 80305

== ENCOUNTER → 2020-03-03 13:28 | Outpatient (CLI) | payer OTHER, SELFPAY ==
[2020-03-03 15:55] LABS: Prostate Specific Ag Screen 0.6 ng/ml (0.0-4.0)
== END ==
PROVIDERS: Visit Provider Urology
DX: Z12.5 Encounter for screening for malignant neoplasm of prostate (principal)
CPT/HCPCS: 36415; G0103

== ENCOUNTER 2020-10-03 15:13 | Outpatient (RCR) | payer OTHER, SELFPAY | END 2020-10-03 15:15 | disposition home or self-care (01) | LOC: OT 15:13 | DX: I63.40 Cerebral infarction due to embolism of unspecified cerebral artery (principal); I69.391 Dysphagia following cerebral infarction; I61.9 Nontraumatic intracerebral hemorrhage, unspecified; I69.398 Other sequelae of cerebral infarction; G93.40 Encephalopathy, unspecified; G72.81 Critical illness myopathy; D64.9 Anemia, unspecified; M19.90 Unspecified osteoarthritis, unspecified site; F14.11 Cocaine abuse, in remission | CPT/HCPCS: 97166 ==

== ENCOUNTER → 2020-10-13 17:51 | Outpatient (CLI) | payer OTHER, SELFPAY ==
[2020-10-13 18:27] LABS: Basophils # 0.1 K/mm3 (0-0.2); Basophils % 0.7 % (0.1-2.0); Eosinophils # 0.3 K/mm3 (0.0-0.4); Eosinophils % 3.3 % (0.1-12.0); Hemoglobin 8.4 g/dL (14.1-18.0); Lymphocytes # 3.5 K/mm3 (0.7-4.5); Lymphocytes % 41.7 % (10-50); Mean Corpuscular HGB Conc 29.8 g/dL (31.8-35.4); Mean Corpuscular Hemoglobin 28.4 pg (27.0-31.2); Mean Corpuscular Volume 95.1 fl (80-94); Mean Platelet Volume 8.8 fl (7.4-10.4); Monocytes # 0.5 K/mm3 (0.1-1.0); Monocytes % 5.9 % (1.7-9.3); Neutrophils # 4.1 K/mm3 (1.8-7.8); Neutrophils % 48.5 % (37.0-80.0); Platelet Count 505 K/mm3 (142-424); Red Blood Count 2.95 M/mm3 (4.60-6.20); Red Cell Distribution Width 15.8 % (11.5-17.5); White Blood Count 8.4 K/mm3 (4.8-10.8)
[2020-10-13 18:33] LABS: Amphetamine/Metha Screen,Urine Negative ng/ml (<1000); Barbiturates Screen,Urine Negative ng/ml (<200)
[2020-10-13 18:34] LABS: Benzodiazepines Screen,Urine Positive ng/ml (<200)
[2020-10-13 18:35] LABS: Cannabinoid Screen,Urine Negative ng/ml (<50); Cocaine Screen,Urine Negative ng/ml (<300)
[2020-10-13 18:36] LABS: Methadone Screen,Urine Negative ng/ml (<300); Opiate Screen,Urine Positive ng/ml (<300)
[2020-10-13 18:37] LABS: Phencyclidine Screen,Urine Negative ng/ml (<25)
[2020-10-13 18:39] LABS: Alanine Aminotransferase 16 U/L (12-78); Albumin Level 4.3 g/dl (3.5-5.0); Albumin/Globulin Ratio 1.2 (1.1-1.8); Alkaline Phosphatase 95 U/L (38-126); Anion Gap 18.4 mEq/L (5-15); Aspartate Amino Transferase 24 U/L (17-59); Bilirubin,Total 0.4 mg/dl (0.2-1.3); Blood Urea Nitrogen 29 mg/dl (9-20); Carbon Dioxide 16 mmol/L (22.0-30.0); Chloride 107 mmol/L (98-107); Chol/HDL Ratio 6.5 (1-3.5); Cholesterol 220 mg/dl (140-200); Estimated Glomerular Filt Rate 13 ml/min (>60); GFR (African American) 16 ML/MIN (>60); Globulin 3.6 g/dL (1.3-3.2); Glucose 67 mg/dl (74-100); HDL Cholesterol 34 mg/dl (40-60); Potassium 5.4 mmoL/L (3.5-5.1); Sodium 136 mmol/L (136-145); Total Protein,Serum 7.9 g/dl (6.3-8.2); Triglycerides 246 mg/dl (30-150); VLDL Cholesterol 49 mg/dL (0-40)
[2020-10-13 18:50] LABS: Direct LDL Cholesterol 92.82 mg/dL (100-129)
[2020-10-13 18:56] LABS: Free T4 (Free Thyroxine) 1.49 ng/dl (0.78-2.19)
[2020-10-13 18:57] LABS: 25-OH Vitamin D, Total 34.9 ng/mL (30-100)
[2020-10-13 19:10] LABS: Thyroid Stimulating Hormone 7.28 uIU/mL (0.465-4.68)
== END ==
PROVIDERS: Visit Provider Emergency Medicine
DX: Z79.899 Other long term (current) drug therapy (principal); E66.9 Obesity, unspecified; E55.9 Vitamin D deficiency, unspecified
CPT/HCPCS: 80053; 80061; 80305; 82306; 84439; 84443; 85025